=== PATIENT | male | born 1995 | race Caucasian/White ===

== ENCOUNTER 2019-03-29 15:46 | Emergency (ER) | payer SELFPAY ==
[2019-03-29] MEDS: IBUPROFEN 600 MG TAB PO (16:52)
== END 2019-03-29 19:12 | disposition home or self-care (01) ==
LOC: FTE 15:46
DX: S93.401A Sprain of unspecified ligament of right ankle, initial encounter (principal); X50.1XXA Overexertion from prolonged static or awkward postures, initial encounter; Y92.9 Unspecified place or not applicable
CPT/HCPCS: 73610; 73610-RT; 99283-25